=== PATIENT | male | born 1960 | race Caucasian/White ===

== ENCOUNTER 2020-11-30 03:51 | Emergency (ER) | payer OTHER ==
[2020-11-30 04:45] LABS: BASOPHIL 0.5 % (0-2); EOSINOPHIL 2.4 % (0-5); HCT 51.9 % (42.0-52.0); HGB 16.8 g/dl (13.2-18.0); LYMPHOCYTE 16.8 % (15-48); MCHC 32.4 g/dL (32.0-36.0); MCV 95.8 fL (78.0-100.0); MONOCYTE 7.7 % (0-12); MPV 11.6 fL (6.0-9.5); NEUTROPHIL 72.2 % (41-80); NRBC 0; PLT 201 K/uL (150-400); RBC 5.42 M/uL (4.70-6.00); RDW 12.2 % (11.5-14.0); WBC 7.4 K/uL (4.0-10.5)
[2020-11-30 05:12] LABS: LACTIC ACID 1.6 mmol/L (0.4-1.9)
[2020-11-30 05:20] LABS: PRO-BNP 237 pg/mL (<125)
[2020-11-30 05:27] LABS: ALBUMIN 3.2 g/dL (3.4-5.0); BILIRUBIN - TOTAL 0.6 mg/dL (0.2-1.0); BUN/CREAT RATIO (CALC) 16.3 RATIO; CREATININE 0.86 mg/dL (0.67-1.17); GLOBULIN (CALCULATION) 4.4 g/dL; POTASSIUM 4.2 mmol/L (3.5-5.1); TOTAL PROTEIN 7.6 g/dL (6.4-8.2)
[2020-11-30] MEDS ORDERED: PULMICORT FLE180 MCG INH (07:45)
[2020-11-30] MEDS ORDERED: VIBRAMYCIN100 MG PO (07:45)
[2020-11-30] MEDS ORDERED: VENTOLIN HFA IN18 GM INH (07:45)
== END 2020-11-30 09:40 | disposition home or self-care (01) ==
LOC: FER 03:51
PROVIDERS: Emergency Medicine Emergency Medical Services
DX: U07.1 COVID-19 (principal); J12.82 Pneumonia due to coronavirus disease 2019; I48.91 Unspecified atrial fibrillation; Z79.01 Long term (current) use of anticoagulants
CPT/HCPCS: 36415; 71045; 71250; 80053; 82728; 83605; 83615; 83880; 84145; 84484; 85025; 85379; 93005; 94640; 94664; J1100; J7050; M0239